=== PATIENT | female | born 1980 | race Caucasian/White ===

== ENCOUNTER 2019-10-25 17:31 | Day surgery (SDC) | payer SELFPAY ==
[2019-10-25 17:43] VITALS: BP 131/68; TEMP 98.4; BMI 47.6
[2019-10-25] MEDS ORDERED: hydrALAZINE 20 MG/ML VIAL SLOW IVP PRN (18:03)
--- NOTE | 2019-10-25 18:53 | PRG ---
DATE OF SERVICE: PRIMARY OB: Dr. Smooth Fraser. CHIEF COMPLAINT: Fall. HISTORY OF PRESENT ILLNESS: Patient is a 39-year-old G4, P3 female, with an intrauterine at 33 weeks and 0 day, presenting today after falling in a hole around 1 o'clock this afternoon. She reports that she stepped in with her left foot and twisted and then fell to her side, catching herself with her hand and her hip. She denies any abdominal trauma or any residual pain other than her ankle from the fall. She denies any hip bruising, any abrasions, or scratches. She continues to feel her baby move regularly. She has some ligament related pains that have been present for a while from the , but has not gotten any worse. She denies uterine contractions or vaginal bleeding. She denies any other complications with this . She denies fever, cough, headache, chest pain, shortness of breath, nausea, vomiting, diarrhea, constipation, hip problems, knee problems, or muscle weakness. Denies vaginal bleeding, leakage of fluid, urinary urgency or frequency. PAST MEDICAL HISTORY: Negative. PAST SURGICAL HISTORY: She has had 2 prior C-sections. ALLERGIES: SULFA DRUGS. OB LABS: Unavailable at the time of dictation. REVIEW OF SYSTEMS: Per HPI. SOCIAL HISTORY: Denies drug, alcohol, or tobacco use. PHYSICAL EXAMINATION: VITAL SIGNS: Blood pressure 131/68, pulse of 97, respiratory rate of 18, and temperature 98.4. GENERAL: She appears to be in no acute distress. She is alert, oriented, cooperative, and pleasant to interact with. HEENT: Head is normocephalic and atraumatic. LUNGS: Clear to auscultation bilaterally. HEART: Has a regular rate and rhythm. ABDOMEN: Gravid. She is soft, nontender to palpation. Nontender with deviation of the uterus. EXTREMITIES: Nontender. She has significant swelling in her left ankle. PELVIS: heart tracing shows a baseline in the 140s with moderate long-term variability, positive 15 x 15 accelerations. She has a couple sharp decelerations that do not appear to be significant. Tocometer has no contractions and again patient is not feeling any contractions. ASSESSMENT AND PLAN: Patient is a 39-year-old female, status post a fall approximately 5 hours ago. Patient is not feeling any contractions and we are not seeing any contractions on the monitor. She has no tenderness to palpation. Concerns for abruption at this time of are very low. Patient is being discharged here and being sent to the emergency room for further evaluation of her ankle. Patient is unable to put much weight on it at this time. Patient has been counseled to follow up with her primary OB as scheduled. Job ID: [id number]
== END 2019-10-25 18:25 | disposition home or self-care (01) ==
LOC: L&D/OP 17:31
PROVIDERS: ATTEND Family Medicine
DX: Z04.3 Encounter for examination and observation following other accident (principal); O34.219 Maternal care for unspecified type scar from previous cesarean delivery; Z3A.33 33 weeks gestation of pregnancy; W17.2XXA Fall into hole, initial encounter; Z88.2 Allergy status to sulfonamides
CPT/HCPCS: 99283

== ENCOUNTER 2019-10-25 18:46 | Emergency (ER) | payer BC, SELFPAY ==
--- NOTE | 2019-10-25 19:25 | RAD ---
LEFT ANKLE THREE VIEWS: Indications: Fall with injury to ankle. FINDINGS: Soft tissue swelling is noted. There is a transverse fracture from the tip of the lateral malleolus. No other abnormality is seen. IMPRESSION: Transverse fracture from the distal tip of the lateral malleolus. POS: AGW
--- NOTE | 2019-10-25 19:26 | RAD ---
LEFT FOOT THREE VIEWS: History: Fell, foot injury. FINDINGS: There is an evulsion fracture of the tip of the fibula. No other findings. IMPRESSION: Evulsion fracture from tip of fibula. POS: KISHA
[2019-10-25] MEDS ORDERED: Acetaminophen 500 MG TAB ONE (19:32)
== END 2019-10-25 20:05 | disposition home or self-care (01) ==
LOC: ERS 18:46
DX: O9A.213 Injury, poisoning and certain other consequences of external causes complicating pregnancy, third trimester (principal); S82.62XA Displaced fracture of lateral malleolus of left fibula, initial encounter for closed fracture; Z3A.33 33 weeks gestation of pregnancy; X50.9XXA Other and unspecified overexertion or strenuous movements or postures, initial encounter

== ENCOUNTER 2019-12-04 09:56 | Outpatient (CLI) | payer BC, OTHER ==
[2019-12-04 16:41] LABS: SARS-CoV-2 MS2 Positive; SARS-CoV-2 N Gene Negative; SARS-CoV-2 S Gene Negative; SARS-CoV-2 by NAA Not Detected (NotDetected); SARS-CoV-2 orf1ab Negative
== END 2019-12-04 09:57 | disposition home or self-care (01) ==
LOC: LABSCS 09:56
PROVIDERS: ATTEND Family Medicine
DX: Z20.828 Contact with and (suspected) exposure to other viral communicable diseases (principal)
CPT/HCPCS: 87635; U0003

== ENCOUNTER 2019-12-08 09:32 | Inpatient (IN) | payer BC ==
[2019-12-08] MEDS ORDERED: Promethazine HCl 25 MG/ML VIAL IM PRN ×2 (10:25→11:04)
[2019-12-08] MEDS ORDERED: hydrALAZINE 20 MG/ML VIAL SLOW IVP PRN (10:25)
[2019-12-08] MEDS ORDERED: Ondansetron PF 4 MG/2 ML Vial IVP PRN ×3 (10:25→15:31)
[2019-12-08] MEDS ORDERED: Lactated Ringer's 1,000 ML IV SCH (10:25)
[2019-12-08 10:42] VITALS: BMI 46.7
[2019-12-08] MEDS ORDERED: CEFAZOLIN 3 GM, Admixture Fee 1 EACH in Sodium Chloride 0.9% 100 ML IVPB SCH (10:45)
[2019-12-08] MEDS ORDERED: Ketorolac Tromethamine 30 MG/ML VIAL IVP PRN (11:04)
[2019-12-08] MEDS ORDERED: Naloxone HCl 0.4 mg/ml Vial IV PRN (11:04)
[2019-12-08] MEDS ORDERED: diphenhydrAMINE 50 MG/ML VIAL IVP PRN (11:04)
[2019-12-08] MEDS ORDERED: Naloxone HCl 0.4 mg/ml Vial IVP PRN ×2 (11:04)
[2019-12-08] MEDS ORDERED: L&D-Morphine 4 MG/ML VIAL SLOW IVP PRN (11:04)
[2019-12-08] MEDS ORDERED: Promethazine HCl 25 MG SUPP PR PRN (11:04)
[2019-12-08] MEDS ORDERED: HYDROmorphone 2 MG/ML VIAL SLOW IVP PRN (11:04)
[2019-12-08] MEDS ORDERED: Meperidine HCl/PF 25 MG/ML VIAL SLOW IVP PRN (11:04)
[2019-12-08] MEDS ORDERED: Ondansetron HCl/PF 4 MG/2 ML Vial IVP PRN (11:04)
[2019-12-08 11:05] LABS: Hemoglobin 10.6 g/dL (12.0-16.0); Mean Corpuscular HGB CONC 33.8 g/dL (32.0-36.0); Mean Corpuscular Hemoglobin 27.9 pg (27.0-31.0); Mean Corpuscular Volume 82.4 fL (78.0-98.0); Mean Platelet Volume 7.3 fL (7.4-10.4); Platelet Count 302 thou/uL (130-400); RBC Distribution Width 12.4 % (11.5-14.5); Red Blood Cell (RBC) Count 3.79 mill/uL (4.20-5.40); White Blood Cell (WBC) Count 9.6 thou/uL (4.8-10.8)
[2019-12-08] MEDS ORDERED: Oxytocin 10 UNITS/ML VIAL ONE (11:09)
[2019-12-08] MEDS ORDERED: PHENYLEPHRINE-NS 100 MCG/ML 10 ML SYRINGE ONE ×2 (11:09→12:49)
[2019-12-08] MEDS ORDERED: Ondansetron PF 4 MG/2 ML Vial ONE ×2 (11:09→13:36)
[2019-12-08] MEDS ORDERED: EPHEDRINE 25 MG/5 ML SYRINGE ONE (11:09)
[2019-12-08] MEDS ORDERED: MORPHINE 5 MG/10 ML PF VIAL ONE (11:09)
[2019-12-08] MEDS ORDERED: Communication Order-Pharmacy FS SCH (11:15)
[2019-12-08] MEDS ORDERED: Ketorolac Tromethamine 30 MG/ML VIAL IVP SCH (11:15)
[2019-12-08 11:42] LABS: HBSAg Index 0.14 S/CO (0-0.99); Hep B Surf Ag Non-Reactive S/CO (NonReactive)
[2019-12-08 11:43] LABS: Syphilis Antibody Nonreactive (Nonreactive); Syphilis Antibody Index 0.02 S/CO (<1.00 Non-Reactive)
[2019-12-08] MEDS ORDERED: Famotidine/PF 20 mg/2ml Vial SLOW IVP SCH (11:45)
[2019-12-08] MEDS ORDERED: CEFAZOLIN 3 GM in Premix Bag 1 BAG IVPB SCH (11:45)
[2019-12-08] MEDS ORDERED: Ketorolac Tromethamine 30 MG/ML VIAL ONE (13:33)
--- NOTE | 2019-12-08 13:51 | PDOC.OPDEL ---
OB Operative/Delivery Note - Additional Findings/Plan Compilations/Other Findings: Date of Procedure: Primary Surgeon: Dr. Smooth Fraser Receptionist Clerk Surgeon: Dr. Monte and Dr. Abraham Felipe Procedure: Repeat low transverse caesarean section Preoperative Diagnosis: 1) 39 weeks 2) Previous x 2 3) Advanced Maternal Age Postoperative Diagnosis: 1) same as above Anesthesia: spinal Indications: The patient is a 39 year old G3,P2 female at 39.2 weeks gestation who presents for a repeat scheduled . Procedure in Detail: After risks, benefits, and alternatives were explained to the patient, she gave informed consent. Pre-operative antibiotics included Cefazolin 3 gram IV. The patient was taken to the operating room and spinal anesthesia was initiated. She was placed in the supine position with a left tilt and prepped and draped in usual sterile fashion. A Pfannenstiel incision was made with a scalpel and carried down to the level of the fascia which was sharply nicked. The fascial cut was extended bilaterally with Nelson sissors. The inferior and superior edges of the cut fascial edges were elevated with Martin clamps and the underlying rectus muscles were sharply and bluntly dissected free. The recti were divided sharply with nelson scissors and retracted manually. The peritoneum was entered bluntly and retracted manually. There were anterior adhesions attached to both the superior bladder and abdominal wall that was carefully dissected away with the Bovie and with blunt digital dissection. Bladder blade was placed. A low transverse score was made with the scalpel and the uterus was entered in the midline with the scalpel. Clear fluid was seen. The hysterotomy was extended manually. The was noted to be vertex and was easily delivered by fundal pressure. Cord clamped and cut and grossly normal female was handed to waiting nurse. Cord blood was obtained. Placenta was manually extracted, found to be intact with 3 vessel cord and discarded. The uterus was externalized and the endometrium was curetted with a dry lap. Bladder blade was replaced and the uterus was closed with a running locking #1 monocryl suture. Along the right lateral aspect of the incision a figure of 8 stitch was placed for hemostasis, which was observed. There was also a few areas of serosal bleeders that was addressed with the Bovie and then with FloSeal. Following this hemostasis was noted. A layer of seprafilm was placed along the incision and anterior aspect of the uterus. The abdomen was irrigated with saline and suctioned free of clots. The uterus was internalized and the hysterotomy was again noted to be hemostatic. The fascia was closed with a running non-locking 0-PDS suture. The peritoneum was closed with a loose running 3-0 vircyl. The subcutaneous tissue was irrigated and approximated using interrupted 2-0 plain sutures. The skin was approximated with anneliese and a pressure dressing was placed. All counts were correct. The patient tolerated the procedure well and was taken to the recovery room in stable condition. Quantified Blood Loss: 786 ml Complications: None Specimens: Cord blood sent to lab for blood type Findings: Grossly normal female that was rigorous and crying upon extraction. Grossly normal placenta with 3 vessel cord discarded. Drains: Sims to gravity draining clear urine
[2019-12-08] MEDS ORDERED: hydrALAZINE 20 MG/ML VIAL SLOW IVP SCH (15:31)
[2019-12-08] MEDS ORDERED: Lanolin Ointment 7 GM TUBE TOP PRN (15:31)
[2019-12-08] MEDS ORDERED: NS / Oxytocin 40 units/1000ml 1,000 ML IV SCH (15:31)
[2019-12-08] MEDS ORDERED: Meperidine HCl/PF 25 MG/ML VIAL IM PRN (15:31)
[2019-12-08] MEDS ORDERED: Bisacodyl 10 MG SUPP PR PRN (15:31)
[2019-12-08] MEDS ORDERED: diphenhydrAMINE 25 MG CAP PO PRN (15:31)
[2019-12-08] MEDS: Ferrous Sulfate 325 MG TAB PO SCH (19:10)
[2019-12-08] MEDS: Ketorolac Tromethamine 30 MG/ML VIAL IVP SCH (19:30)
[2019-12-08] MEDS: Docusate Calcium (SURFAK) 240 MG CAP PO SCH (23:40)
[2019-12-09] MEDS: Ketorolac Tromethamine 30 MG/ML VIAL IVP SCH ×2 (00:33→06:22)
[2019-12-09 05:50] LABS: Hemoglobin 9.3 g/dL (12.0-16.0); Mean Corpuscular HGB CONC 33.8 g/dL (32.0-36.0); Mean Corpuscular Hemoglobin 28.6 pg (27.0-31.0); Mean Corpuscular Volume 84.4 fL (78.0-98.0); Mean Platelet Volume 6.7 fL (7.4-10.4); Platelet Count 241 thou/uL (130-400); RBC Distribution Width 12.7 % (11.5-14.5); Red Blood Cell (RBC) Count 3.25 mill/uL (4.20-5.40); White Blood Cell (WBC) Count 9.3 thou/uL (4.8-10.8)
[2019-12-09] MEDS: Docusate Calcium (SURFAK) 240 MG CAP PO SCH ×2 (08:28→21:14)
[2019-12-09] MEDS: Prenatal Vitamin 1 TAB PO SCH (08:28)
[2019-12-09] MEDS: Ferrous Sulfate 325 MG TAB PO SCH ×2 (08:29→21:14)
[2019-12-09] MEDS ORDERED: Adacel (T-DAP) 0.5 ML SYRINGE IM ONE (09:00)
[2019-12-09] MEDS: HYDROcodone/Acetaminophen 5/325 mg Tablet PO PRN ×3 (11:50→21:14)
[2019-12-09] MEDS: Simethicone Chewable 80 MG TAB PO PRN ×2 (11:52→18:05)
[2019-12-09] MEDS: Ibuprofen 800 MG TAB PO SCH ×2 (14:22→21:14)
[2019-12-10] MEDS: HYDROcodone/Acetaminophen 5/325 mg Tablet PO PRN ×5 (01:23→20:03)
[2019-12-10] MEDS: Ibuprofen 800 MG TAB PO SCH ×3 (05:40→21:55)
[2019-12-10] MEDS: Ferrous Sulfate 325 MG TAB PO SCH ×2 (07:44→21:56)
[2019-12-10] MEDS: Simethicone Chewable 80 MG TAB PO PRN ×3 (07:45→20:04)
[2019-12-10] MEDS: Docusate Calcium (SURFAK) 240 MG CAP PO SCH ×2 (07:46→21:56)
[2019-12-10] MEDS: Prenatal Vitamin 1 TAB PO SCH (07:46)
[2019-12-10 20:50] VITALS: TEMP 98.3
[2019-12-11] MEDS: HYDROcodone/Acetaminophen 5/325 mg Tablet PO PRN ×3 (04:55→14:52)
[2019-12-11] MEDS: Ibuprofen 800 MG TAB PO SCH ×2 (05:39→13:52)
[2019-12-11] MEDS: Simethicone Chewable 80 MG TAB PO PRN (07:31)
[2019-12-11] MEDS: Prenatal Vitamin 1 TAB PO SCH (07:32)
[2019-12-11] MEDS: Ferrous Sulfate 325 MG TAB PO SCH (07:32)
[2019-12-11] MEDS: Docusate Calcium (SURFAK) 240 MG CAP PO SCH (07:32)
[2019-12-11 08:09] VITALS: BP 126/73
== END 2019-12-11 16:15 | disposition home or self-care (01) | DRG 788 ==
LOC: L&D 09:32 → 3SE 15:54
PROVIDERS: ADMIT Family Medicine; ATTEND Family Medicine
PROC: 10D00Z1 Extraction of Products of Conception, Low, Open Approach (ICD-10-PCS; principal; 2019-12-09)
PROC: 3E0P05Z Introduction of Adhesion Barrier into Female Reproductive, Open Approach (ICD-10-PCS; 2019-12-09)
DX: O34.211 Maternal care for low transverse scar from previous cesarean delivery (principal); Z3A.39 39 weeks gestation of pregnancy; Z37.0 Single live birth; O99.89 Other specified diseases and conditions complicating pregnancy, childbirth and the puerperium; N73.6 Female pelvic peritoneal adhesions (postinfective)
CPT/HCPCS: 36415; 51702; 85027; 86780; 86850; 86870; 86900; 86901; 87340; J0690; J1885; J2274; J2405; J2550; J2590; J3490